=== PATIENT | female | born 1990 | race Caucasian/White ===

== ENCOUNTER 2021-07-30 21:23 | Inpatient (IN) | payer MEDICAID, SELFPAY ==
[2021-07-30 21:39] VITALS: BP 128/76; PULSE 90; RESP 18; TEMP 37.2; O2SAT 98
[2021-07-30 21:41] VITALS: BMI 19.2
[2021-07-30 22:00] VITALS: RESP 15
--- NOTE | 2021-07-30 22:38 | PC.NURSE ---
Marry is a 30 year old female who is a direct admit. Patient is an involuntary 96 hour hold. She arrived on 07/30/2021 at approximately 2140 via [address]. Her hair is curly and unkempt. She is a poor historian. Patient first stated someone took her to the hospital, then later she stated she was taken to the ER yesterday by her sister but she doesn't know or understand why her sister did that. Documents show that she's been in the hospital since the 27 of July. She doesn't understand why she was brought here. Patient stated I was plenty comfortable at my last place. Patient denies being SI/HI or doing any self harm. She denies any pain or sob at this time. Pupils are pinpoint size. Patient will avoid direct eye contact. Denies using any drugs or alcohol. Denies any family history of drug or alcohol issues. One tattoo on the right shoulder blade. No visible scars observed during skin check upon admission.
--- NOTE | 2021-07-30 23:21 | PC.NURSE ---
new admit 30/F SI/Psychosis +METH/+THC Direct Admit from [facility] formerly [facility], on 96hr hold up 96^08/04/21@0001 Pt has been homeless for the last couple weeks and is struggling with food/half-way needs. Pt?s appearance is disheveled, she avoids eye contact, and hair is matted. Pt endorses a history of anxiety, she denies drug use and denies past psych history. Pt?s sister states, ?She is struggling with a Meth addiction, her behavior is erratic, and she is not compliant with medications.? Pt?s thought process is disorganized, delusional, paranoid, and she is experiencing AH. Per medical records sent with pt, she has a history of Paranoid schizophrenia and med compliance issues.
[2021-07-31 06:00] VITALS: BP 110/70; PULSE 72; RESP 16; TEMP 35.9; O2SAT 98
--- NOTE | 2021-07-31 11:13 | NPU.GN ---
[facility] Topic:Luis Martin General Mood of Group: Marry did attend group therapy, she participated and talked with others. Marry seemed in good spirits. This designer writer will meet with Lupe to discuss ERE program, and how those services can assist her with her situation.
[2021-07-31 14:00] VITALS: BP 109/72; PULSE 92; RESP 20; TEMP 36.8; O2SAT 99
[2021-07-31] MEDS: nicotine 2 mg Gum BUCCAL (15:00)
--- NOTE | 2021-07-31 16:36 | P.HP_ITS ---
Providers/Chief Complaint Admitting Physician: Petros Puga MD Chief Complaint: Psychosis HPI NPU History of Present Illness Marry Arevalo is a 30 year old female who presented to an outside hospital endorsing that she was doing okay but appearing psychotic. Her sister was part of the process of getting her to the hospital, endorsing she has been homeless, using drugs including methamphetamine with a history of schizophrenia, off her medication for at least two weeks making very poor and dangerous choices with significant concern. She was placed on a 96-hour hold and transferred to [facility] and admitted to the neuropsychiatric unit for definitive treatment of those issues. She presents today as an unwilling and certainly unreliable historian, reporting that she has never been psychiatrically hospitalized, which is contradicted in the notes that we received from the outside hospital. She denies outpatient services and denies any medication. She reports she smokes a pack of cigarettes a day but otherwise denied alcohol, marijuana, or any illicit drugs, going as far as to say she has never used before. I attempted to assure her that I was not with the police, that I was a medical professional, trying to be helpful, and that the most help she would receive is from an honest assessment of what the difficulty is, but she continued and said that she has never used drugs before, never been to a rehab, never had a DUI. She denied ever having a suicide attempt and reports that she is absolutely unaware of why anybody would suggest that she needs to be in the hospital. We discussed the risks, benefits, and alternatives of considering some medication including the possibility of restarting some medications that she has had success with in the past, and she continued to deny medication history, and denied that there is anything that would be treated. PSYCHIATRIC HISTORY: As above. SUBSTANCE ABUSE HISTORY: As above. FAMILY HISTORY: She denied mental health or addiction issues on either side of the family, or suicide attempts or completions on either side of the family. DEVELOPMENTAL HISTORY: She denies issues with her mother?s or delivery of her. She met all developmental milestones on time. She denies any speech therapy, learning support, emotional support, or special education classes. PSYCHOSOCIAL HISTORY: She reports that her parents were together and remain together and that she is one of four children they had together. She has an older brother and older sister plus one younger sister. She denies any half-siblings through either of her parents. She reports her childhood was good and she denies any emotional, physical, or sexual abuse. She denies any other history of trauma or traumatic events. She reports she graduated from high school but denied any additional training. She reports that she does not have attraction to people but does endorse that she has had relationship with guys. She has never been , she has four children, a girl aged 11, a boy aged 9, girl aged 6, and a boy aged 3 that she reports are all with her mother, she has never been in the , and she denies any oriental orthodox belief system. 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 She denies the report in the outside hospital?s paperwork that she is homeless, saying she has been comfortable staying with a friend. LEGAL HISTORY: Denied. MEDICAL HISTORY: Denied. Meds NPU Home Medications Medication Instructions Recorded Confirmed Last Taken Type No Known Home Medications 07/30/21 07/30/21 Unknown History Allergies Allergy/AdvReac Type Severity Reaction Status Date / Time No Known Allergies Allergy Verified 07/30/21 22:03 PFSH NPU PFSH: Social History (Updated 07/30/21 @ 23:16 by Cassandra Bernardo RN) Smoking and tobacco status: current every day smoker cigarettes Quit status (tobacco): not considering quitting Second hand smoke exposure: Yes Smoking risk assessment/counseling performed?: Yes Desire information about substance/drug rehabilitation?: No Counseling given: Yes Housing: Homeless service: No Current occupational status: unemployed Current occupational exposures/hazards: No Pets and animals: No History of recent travel: No Sexually active: Yes Current gender identity: Female Additional social history: Homeless for several weeks, meth and THC abuse, erratic behavior, on 96 hr hold Mental Status Exam MSE Comments: This is a well-nourished, well-developed, white female, in hospital scrubs with poor grooming, and eye contact, significant pick pascual and acne in the center parts of both her cheeks. No abnormal movements except for psychomotor retardation. Semi-cooperative with exam in no acute distress. Speech was decreased rate and volume. Mood described as good; affect subdued Thought process, organized. Thought content: patient denied any suicidal or homicidal ideation, there were no delusions reported, but she clearly seemed guarded, she denied any auditory or visual hallucinations. Attention and concentration were mostly intact, and memory was unreliable, likely intentionally so, but none were formally tested. She is alert and oriented times person and place. Insight and judgment are impaired, impulse control is impaired. Vitals/I&O/Wt Last Vital Signs Temp 98.2 F 07/31/21 14:00 Pulse 92 07/31/21 14:00 Resp 20 H 07/31/21 14:00 BP 109/72 07/31/21 14:00 Pulse Ox 99 07/31/21 14:00 Weight last 48 hrs Weight 47.627 kg A&P Assessment and plan (1) Psychosis: Status: Acute (2) History of schizophrenia: Status: Acute (3) Methamphetamine dependence, continuous: Status: Acute Additional A&P Information This is a 30-year-old, white female, with a long history of mental health and addiction issues, who presents in full denial of any past history of mental health interventions or addiction, activities or treatment on a 96-hour hold, currently denying a need for any interventions. RECOMMENDATION AND PLAN: 1. Continue current medication. We will continue to try to offer her to restart previous medication or start a new antipsychotic. 2. Encourage individual, group, and milieu therapy. 3. Continue q-15 minute checks for safety. 4. Encourage sober living treatment after discharge, at the highest level of care, to which she is willing to commit. Involuntary Hold Information 96 Hour Hold: 96 Hour Involuntary Admission: Yes 96 Hour Hold Ending Date: 08/04/21 96 Hour Hold Ending Time: 00:01 Attestations NPU Medical Necessity Statement*: Inpatient hospitalization is medically necessary and the clinically appropriate intervention, at this time. We will monitor medications and make changes as indicated. Patient will be in the hospital for over two midnights. Likely length of stay is four to six days. Coding Level of Care Code Acute Adult Basic Studies Teacher for Caron Pickett Diagnoses Psychosis F29 History of schizophrenia Z86.59 Methamphetamine dependence, continuous F15.20
[2021-07-31 22:00] VITALS: BP 121/82; PULSE 68; RESP 17; TEMP 36.9; O2SAT 95
[2021-08-01 06:00] VITALS: BP 109/66; PULSE 58; RESP 15; TEMP 36.6; O2SAT 99
--- NOTE | 2021-08-01 11:57 | NPU.GN ---
[facility] Topic:Fransico General Mood of Group: Marry did not attend group today, she wanted to sleep.
[2021-08-01 14:00] VITALS: BP 106/75; PULSE 100; RESP 18; TEMP 36.1; O2SAT 96
[2021-08-01] MEDS: nicotine 2 mg Gum BUCCAL (15:11)
--- NOTE | 2021-08-01 18:09 | PM.NPN ---
Subjective NPU Subjective: Interval history: Patient presents today continuing to have denial of her current circumstances regardless of the evidence and information we have from outside hospital documentation. She continues to deny any issues with addiction may be reporting some distant past behavior. She does not want to talk about any of her documented psychiatric history and is not open to medications. She is eating and appears to be sleeping well. Mental Status Exam MSE Comments: This is a well-nourished, well-developed, white female, in hospital scrubs with poor grooming, and eye contact, significant pick pascual and acne in the center parts of both her cheeks. No abnormal movements except for psychomotor retardation. Semi-cooperative with exam in no acute distress. Speech was decreased rate and volume. Mood described as good; affect subdued. Thought process, organized. Thought content: patient denied any suicidal or homicidal ideation, there were no delusions reported, but she clearly seemed guarded, she denied any auditory or visual hallucinations. Attention and concentration were mostly intact, and memory was unreliable, likely intentionally so, but none were formally tested. She is alert and oriented times person and place. Insight and judgment are impaired, impulse control is impaired. Vitals/I&O/Wt Last Vital Signs Temp 97.3 F L 08/01/21 20:39 Pulse 74 08/01/21 20:39 Resp 16 08/01/21 20:39 BP 97/58 08/01/21 20:39 Pulse Ox 100 08/01/21 20:39 A&P Additional A&P Information (1) Psychosis: (2) History of schizophrenia: (3) Methamphetamine dependence, continuous: This is a 30-year-old, white female, with a long history of mental health and addiction issues, who presents in full denial of any past history of mental health interventions or addiction, activities or treatment on a 96-hour hold, currently denying a need for any interventions. RECOMMENDATION AND PLAN: 1. Continue current medication. We will continue to try to offer her to restart previous medication or start a new antipsychotic. 2. Encourage individual, group, and milieu therapy. 3. Continue q-15 minute checks for safety. 4. Encourage sober living treatment after discharge, at the highest level of care, to which she is willing to commit. Involuntary Hold Information 96 Hour Hold: 96 Hour Involuntary Admission: Yes 96 Hour Hold Ending Date: 08/04/21 96 Hour Hold Ending Time: 00:01 Attestations NPU Medical Necessity Statement*: Inpatient hospitalization is medically necessary and the clinically appropriate intervention, at this time. We will monitor medications and make changes as indicated. Likely length of stay is four to six days. Coding Level of Care Code Acute Cotton Weigher for Caron Pickett
[2021-08-01 20:39] VITALS: BP 97/58; PULSE 74; RESP 16; TEMP 36.3; O2SAT 100
[2021-08-02 06:00] VITALS: BP 103/60; PULSE 62; RESP 16; TEMP 36.5; O2SAT 97
--- NOTE | 2021-08-02 10:47 | P.PN_ITS ---
Subjective NPU Subjective: Interval history: Jocelyn presents today continuing to assert that she has no mental health or addiction issues. Really try to negotiate with her about restarting something on the past that was helpful without resolution. Discussed with her the 21-day hold was initiated but that tomorrow Dr. Layne will be available and they could explore with a possibility RN he will make an independent assessment of her safety for discharge and level of impairment. She was happy about the doctors change and was not interested in making any treatment changes. Mental Status Exam MSE Comments: This is a well-nourished, well-developed, white female, in hospital scrubs with poor grooming, and eye contact, significant pick pascual and acne in the center parts of both her cheeks. No abnormal movements except for psychomotor retardation. Semi-cooperative with exam in no acute distress. Speech was decreased rate and volume. Mood described as good; affect subdued and irritated with treatment team's position. Thought process, organized. Thought content: patient denied any suicidal or homicidal ideation, there were no delusions reported, but she clearly seemed guarded, she denied any auditory or visual hallucinations. Attention and concentration were mostly intact, and memory was unreliable, likely intentionally so, but none were formally tested. She is alert and oriented times person and place. Insight and judgment are impaired, impulse control is impaired. Vitals/I&O/Wt Last Vital Signs Temp 97.7 F 08/02/21 06:00 Pulse 62 08/02/21 06:00 Resp 16 08/02/21 06:00 BP 103/60 08/02/21 06:00 Pulse Ox 97 08/02/21 06:00 A&P Additional A&P Information (1) Psychosis: (2) History of schizophrenia: (3) Methamphetamine dependence, continuous: This is a 30-year-old, white female, with a long history of mental health and addiction issues, who presents in full denial of any past history of mental health interventions or addiction, activities or treatment on a 96-hour hold, currently denying a need for any interventions. RECOMMENDATION AND PLAN: 1. Continue current medication. We will continue to try to offer her to restart previous medication or start a new antipsychotic. 2. Encourage individual, group, and milieu therapy. 3. Continue q-15 minute checks for safety. 4. Encourage sober living treatment after discharge, at the highest level of care, to which she is willing to commit. 5. 21 day hold paperwork submitted. Involuntary Hold Information 96 Hour Hold: 96 Hour Involuntary Admission: Yes 96 Hour Hold Ending Date: 08/04/21 96 Hour Hold Ending Time: 00:01 Attestations NPU Medical Necessity Statement*: Inpatient hospitalization is medically necessary and the clinically appropriate intervention, at this time. We will monitor medications and make changes as indicated. Likely length of stay is 3-4 days. We will continue to encourage her to medication trial and await 21-day hold hearing date. Coding Level of Care Code Acute Biometric Fingerprinting Technician for Caron Pickett
--- NOTE | 2021-08-02 12:17 | NPU.GN ---
[facility] Topic:Coping Skills Bingo/ Cross word puzzle General Mood of Group: Marry did not attend and participate in group therapy this morning. Marry wanted to sleep.
[2021-08-02 14:00] VITALS: BP 106/61; PULSE 102; RESP 18; TEMP 36.8; O2SAT 96
[2021-08-02] MEDS: nicotine 2 mg Gum BUCCAL (15:11)
[2021-08-02 20:09] VITALS: BP 127/73; PULSE 92; RESP 18; TEMP 36.8; O2SAT 95
[2021-08-02] MEDS: trazodone 50 mg Tablet PO (21:25)
--- NOTE | 2021-08-03 04:27 | PC.NURSE ---
Patient up early in shift. Calm and cooperative with appropriate affect. Denied SI/HI, AVH, anxiety or depression. Reqested and received PRN Trazodone at 2124 to good effect. Patient has been resting with eyes closed in bed. No complaints voiced.
[2021-08-03 06:00] VITALS: BP 126/58; PULSE 61; RESP 15; TEMP 36.6; O2SAT 98
--- NOTE | 2021-08-03 13:04 | NPU.GN ---
[facility] Topic:Coping Kills Checklist General Mood of Group: Marry did attend group today and participated. Marry seems a bit guarded and shy she did not talk much or share her activity responses. Marry also seemed confused with the group activities.
[2021-08-03 14:00] VITALS: BP 108/76; PULSE 108; RESP 20; TEMP 36.6; O2SAT 93
--- NOTE | 2021-08-03 14:28 | PM.NPN ---
Subjective NPU Subjective: Interval history: The patient presents saying, I am perfectly stable. Medication makes me worse. She continues to deny information obtained from other medical facilities. Again, she does not want to talk about her psychiatric history. She reports that her mood is good without depression or worry. She says she slept well without nightmares. She denies auditory and visual hallucinations. She denies suicidal and homicidal ideation. I explained that we had taken out a 21-day hold petition. If/when the bay stocker accepts the petition, he will order her held until the time of the next hearing. While she understands the procedure, she disagrees with the need for continued hospitalization. Mental Status Exam MSE Comments: This is a well-nourished, well-developed, white female, in hospital scrubs with poor grooming, and eye contact, significant pock pascual and acne in the center parts of both her cheeks. No abnormal movements noted. No psychomotor agitation or retardation. Except for psychomotor retardation. She is cooperative with the exam, to the extent that she is able. Speech is at a regular rate and rhythm. Mood described as good; affect is on the verge of getting agitated. Thought process, organized. Thought content: patient denied any suicidal or homicidal ideation, there were no delusions reported, but she clearly seemed guarded, she denied any auditory or visual hallucinations. Attention and concentration were mostly intact, and memory was unreliable, likely intentionally so, but none were formally tested. She is alert and oriented times person and place. Insight and judgment are impaired, impulse control is impaired. Vitals/I&O/Wt Last Vital Signs Temp 97.9 F 08/03/21 06:00 Pulse 61 08/03/21 06:00 Resp 15 08/03/21 06:00 BP 126/58 08/03/21 06:00 Pulse Ox 98 08/03/21 06:00 A&P Assessment and plan (1) Methamphetamine dependence, continuous: Status: Acute (2) History of schizophrenia: Status: Acute (3) Psychosis: Status: Acute Additional A&P Information This is a 30-year-old, white female, with a long history of mental health and addiction issues, who presents in full denial of any past history of mental health interventions or addiction, activities or treatment on a 96-hour hold, currently denying a need for any interventions. RECOMMENDATION AND PLAN: 1. Continue current medication. We will continue to try to offer her to restart previous medication or start a new antipsychotic. 2. Encourage individual, group, and milieu therapy. 3. Continue q-15 minute checks for safety. 4. Encourage sober living treatment after discharge, at the highest level of care, to which she is willing to commit. Involuntary Hold Information 96 Hour Hold: 96 Hour Involuntary Admission: Yes 96 Hour Hold Ending Date: 08/04/21 96 Hour Hold Ending Time: 00:01 Attestations NPU Medical Necessity Statement*: Inpatient hospitalization is medically necessary and the clinically appropriate intervention, at this time. We will monitor medications and make changes as indicated. Likely length of stay is 3-4 days. Coding Level of Care Code Acute Customer Acquisition Manager for Caron Pickett Diagnoses Methamphetamine dependence, continuous F15.20 History of schizophrenia Z86.59 Psychosis F29
--- NOTE | 2021-08-03 15:36 | PC.NURSE ---
verbal consent from patient that we can speak to her sister
[2021-08-03] MEDS: hyDROXYzine 25 mg Capsule 50 MG PO ×2 (16:05→21:04)
--- NOTE | 2021-08-03 16:05 | PC.NURSE ---
prn VISTARIL 50 MG GIVEN PO PER PT C/O STATED ANXIETY
[2021-08-03] MEDS: nicotine 2 mg Gum BUCCAL (17:46)
[2021-08-03 19:55] VITALS: BP 111/77; PULSE 94; RESP 17; TEMP 37.1; O2SAT 95
--- NOTE | 2021-08-03 20:00 | PC.NURSE ---
Upon assessment patient was talking on the phone with a friend. Patient smiling and laughing. She denied any complaints and stated she was feeling good. Patient has been compliant with all care this shift. Will continue to monitor.
[2021-08-04 06:00] VITALS: BP 128/90; PULSE 68; RESP 16; TEMP 36.6; O2SAT 95
[2021-08-04 14:00] VITALS: BP 97/56; PULSE 86; RESP 17; TEMP 37.1; O2SAT 97
[2021-08-04] MEDS: blistex lip oint 7 gm Tube 1 APPLIC TOPICAL (16:17)
--- NOTE | 2021-08-04 16:54 | P.PN_ITS ---
Subjective NPU Subjective: Interval history: I met with the treatment team to discuss the patient's progress. They say she has been approved for the ER a program. The patient says she is now willing to take Risperdal, and believes she takes 1 mg twice daily at home. She says it helps for her psychosis. She denies hearing or seeing things now. No suicidal or homicidal ideation. Mental Status Exam MSE Comments: This is a well-nourished, well-developed, white female, in hospital scrubs with poor grooming, and eye contact, significant pick pascual and acne in the center parts of both her cheeks. No abnormal movements except for psychomotor retardation. Semi-cooperative with exam in no acute distress. Speech was decreased rate and volume. Mood described as good; affect improved. Thought process, organized. Thought content: patient denied any suicidal or homicidal ideation, there were no delusions reported, and seems less guarded, she denied any auditory or visual hallucinations. Attention and concentration were mostly intact, and memory is improving, but none were formally tested. She is alert and oriented times person and place. Insight and judgment are impaired, impulse control is impaired. Vitals/I&O/Wt Last Vital Signs Temp 98.7 F 08/04/21 14:00 Pulse 86 08/04/21 14:00 Resp 17 08/04/21 14:00 BP 97/56 08/04/21 14:00 Pulse Ox 97 08/04/21 14:00 A&P Assessment and plan (1) Methamphetamine dependence, continuous: Status: Acute (2) History of schizophrenia: Status: Acute (3) Psychosis: Status: Acute Additional A&P Information This is a 30-year-old, white female, with a long history of mental health and addiction issues, who presents in full denial of any past history of mental health interventions or addiction, activities or treatment on a 96-hour hold, currently denying a need for any interventions. RECOMMENDATION AND PLAN: 1. Continue current medication. She says she has taken Risperdal 1 mg twice daily in the past for her schizophrenia, and is willing to restart that medication today. 2. Encourage individual, group, and milieu therapy. 3. Continue q-15 minute checks for safety. 4. Encourage sober living treatment after discharge, at the highest level of care, to which she is willing to commit. 5. 21 day hold paperwork submitted. Hearing is scheduled for 08/07/2021 at 3 PM. Involuntary Hold Information 96 Hour Hold: 96 Hour Involuntary Admission: Yes 96 Hour Hold Ending Date: 08/04/21 96 Hour Hold Ending Time: 00:01 Attestations NPU Medical Necessity Statement*: Inpatient hospitalization is medically necessary and the clinically appropriate intervention, at this time. We will monitor medications and make changes as indicated. Likely length of stay is 3-4 days. We will continue to encourage her to medication trial and await 21-day hold hearing on 08/07/2021. Coding Level of Care Code Acute Internet And E Business Project Manager for [employer] Diagnoses Methamphetamine dependence, continuous F15.20 History of schizophrenia Z86.59 Psychosis F29
[2021-08-04] MEDS: hyDROXYzine 25 mg Capsule 50 MG PO (17:16)
[2021-08-04] MEDS: risperiDONE 1 mg Tablet PO (17:16)
[2021-08-04 21:03] VITALS: BP 104/62; PULSE 72; RESP 18; TEMP 36.9; O2SAT 95
[2021-08-04] MEDS: trazodone 50 mg Tablet PO (21:13)
[2021-08-05 06:00] VITALS: BP 109/70; PULSE 81; RESP 14; TEMP 36.6; O2SAT 99
[2021-08-05] MEDS: risperiDONE 1 mg Tablet PO ×2 (10:36→17:19)
[2021-08-05] MEDS: hyDROXYzine 25 mg Capsule 50 MG PO ×2 (12:25→21:49)
--- NOTE | 2021-08-05 12:25 | PC.NURSE ---
Vistaril PRN Patient requesting a PRN medication for anxiety. Vistaril given. Will continue to monitor.
[2021-08-05 14:00] VITALS: BP 117/82; PULSE 97; RESP 18; TEMP 36.6; O2SAT 98
[2021-08-05] MEDS: nicotine 2 mg Gum BUCCAL ×2 (15:12→17:20)
[2021-08-05] MEDS: OLANZapine 5 mg ODT PO (15:27)
--- NOTE | 2021-08-05 15:32 | P.PN_ITS ---
Subjective NPU Subjective: Interval history: The patient says her mood is okay and she is not depressed at all. We talked some more about the Risperdal, and she openly tells me she takes it at home for her schizophrenia. She denies auditory and visual hallucinations. No suicidal or homicidal ideation. She denies any medication side effects since starting the Risperdal. Mental Status Exam MSE Comments: This is a well-nourished, well-developed, white female, in hospital scrubs with poor grooming, and eye contact, significant pick pascual and acne in the center parts of both her cheeks. No abnormal movements. No psychomotor agitation or retardation. She is much more cooperative now. No acute distress. Speech was at a regular rate and rhythm but somewhat quiet. Mood described as good; affect improved. Thought process, organized. Thought content: patient denied any suicidal or homicidal ideation, there were no delusions reported, and seems less guarded, she denied any auditory or visual hallucinations. Attention and concentration were mostly intact, and memory is improving, but none were formally tested. She is alert and oriented times person and place. Insight and judgment are improving, impulse control is improving. Vitals/I&O/Wt Last Vital Signs Temp 98.7 F 08/06/21 14:00 Pulse 88 08/06/21 14:00 Resp 18 08/06/21 14:00 BP 106/58 08/06/21 14:00 Pulse Ox 96 08/06/21 14:00 Weight last 48 hrs Weight 47.627 kg A&P Additional A&P Information This is a 30-year-old, white female, with a long history of mental health and addiction issues, who presents in full denial of any past history of mental health interventions or addiction, activities or treatment on a 96-hour hold, currently denying a need for any interventions. RECOMMENDATION AND PLAN: 1. Continue current medication. She is now taking her home medication, Risper patricia 1 mg twice daily. No side effects 2. Encourage individual, group, and milieu therapy. 3. Continue q-15 minute checks for safety. 4. Encourage sober living treatment after discharge, at the highest level of care, to which she is willing to commit. 5. 21 day hold paperwork submitted. Hearing is scheduled for 08/07/2021 at 3 PM. Involuntary Hold Information 96 Hour Hold: 96 Hour Involuntary Admission: Yes 96 Hour Hold Ending Date: 08/04/21 96 Hour Hold Ending Time: 00:01 Attestations NPU Medical Necessity Statement*: Inpatient hospitalization is medically necessary and the clinically appropriate intervention, at this time. We will monitor medications and make changes as indicated. Likely length of stay is 2-3 days. We will continue to encourage her to medication trial and await 21-day hold hearing on 08/07/2021. Coding Level of Care Code Acute [employer] Operations Manager for Caron Pickett
[2021-08-05 22:00] VITALS: BP 97/61; PULSE 95; RESP 16; TEMP 36.7; O2SAT 100
--- NOTE | 2021-08-06 01:28 | PC.NURSE ---
Patient requested and received PRN medications- Vistaril- 2149 for anxiety to good effect. No further complaints at this time.
[2021-08-06 06:00] VITALS: BP 94/61; PULSE 62; RESP 16; TEMP 36.8; O2SAT 99
[2021-08-06] MEDS: risperiDONE 1 mg Tablet PO ×2 (07:58→20:33)
[2021-08-06 14:00] VITALS: BP 106/58; PULSE 88; RESP 18; TEMP 37.1; O2SAT 96
--- NOTE | 2021-08-06 17:46 | P.PN_ITS ---
Subjective NPU Subjective: Interval history: The patient says she is continuing to do better. Her mood is improved. She slept well last night. She has no side effects on Risperdal. No auditory or visual hallucinations. No suicidal ideation. We talked about the circumstances of her admission. She said she had been sitting alone in her apartment which put her at risk for drug relapse. She says she will now stay off of drugs and on her medication. She says her sister lives next door and is supportive of her. She is hoping to leave tomorrow. We will discuss this with the team. Mental Status Exam MSE Comments: This is a well-nourished, well-developed, white female, in hospital scrubs with poor grooming, and eye contact, significant pick pascual and acne in the center parts of both her cheeks. No abnormal movements. No psychomotor agitation or retardation. She is much more cooperative now. No acute distress. Speech was at a regular rate and rhythm but somewhat quiet. Mood described as good; affect improved. Thought process, organized. Thought content: patient denied any suicidal or homicidal ideation, there were no delusions reported, and seems less guarded, she denied any auditory or visual hallucinations. Attention and concentration were mostly intact, and memory is improving, but none were formally tested. She is alert and oriented times person and place. Insight and judgment are improving, impulse control is improving. Vitals/I&O/Wt Last Vital Signs Temp 98.7 F 08/06/21 14:00 Pulse 88 08/06/21 14:00 Resp 18 08/06/21 14:00 BP 106/58 08/06/21 14:00 Pulse Ox 96 08/06/21 14:00 Weight last 48 hrs Weight 47.627 kg A&P Assessment and plan (1) Methamphetamine dependence, continuous: Status: Acute (2) History of schizophrenia: Status: Acute (3) Psychosis: Status: Acute Additional A&P Information This is a 30-year-old, white female, with a long history of mental health and addiction issues, who presents in full denial of any past history of mental health interventions or addiction, activities or treatment on a 96-hour hold, currently denying a need for any interventions. RECOMMENDATION AND PLAN: 1. Continue current medication. She is now taking her home medication, Risperdal 1 mg twice daily. No side effects 2. Encourage individual, group, and milieu therapy. 3. Continue q-15 minute checks for safety. 4. Encourage sober living treatment after discharge, at the highest level of care, to which she is willing to commit. 5. 21 day hold paperwork submitted. Hearing is scheduled for 08/07/2021 at 3 PM. If the patient continues to improve and has good discharge plans, we will release her before the hearing. Involuntary Hold Information 96 Hour Hold: 96 Hour Involuntary Admission: Yes 96 Hour Hold Ending Date: 08/04/21 96 Hour Hold Ending Time: 00:01 Attestations NPU Medical Necessity Statement*: Inpatient hospitalization is medically necessary and the clinically appropriate intervention, at this time. We will monitor medications and make changes as indicated. Likely length of stay is 1-2 days. We will continue to encourage her to medication trial and await 21-day hold hearing on 08/07/2021. Coding Level of Care Code Acute Manager Transfer for Caron Pickett Diagnoses Methamphetamine dependence, continuous F15.20 History of schizophrenia Z86.59 Psychosis F29
[2021-08-06] MEDS: nicotine 2 mg Gum BUCCAL (18:12)
[2021-08-06 20:00] VITALS: BP 98/60; PULSE 62; RESP 16; TEMP 36.3; O2SAT 96
[2021-08-06] MEDS: hyDROXYzine 25 mg Capsule 50 MG PO (20:33)
[2021-08-06] MEDS: trazodone 50 mg Tablet PO (21:34)
[2021-08-06] MEDS: OLANZapine 5 mg ODT PO (22:35)
--- NOTE | 2021-08-06 23:21 | PC.NURSE ---
Upon assessment patient in her room. Patient is alert/oriented x4. Patient has good eye contact and is smiling. She has been cooperative with staff and minimally social with peers this shift. Patient does talk on the phone quite often. She continues to appear disheveled. She denied any depression, anxiety, SI/HI, hallucinations. Will continue to monitor and follow plan of care. q 15 min safety checks per protocol.
[2021-08-07 06:00] VITALS: BP 111/71; PULSE 72; RESP 15; TEMP 37.1; O2SAT 98
[2021-08-07] MEDS: risperiDONE 1 mg Tablet PO (08:37)
[2021-08-07 11:06] VITALS: BP 111/71; PULSE 72; RESP 15; TEMP 37.1; O2SAT 98
--- NOTE | 2021-08-07 11:35 | PM.NDC ---
Diagnoses at Discharge Discharge Diagnosis (1) Methamphetamine dependence, continuous: Status: Chronic (2) History of schizophrenia: Status: Chronic (3) Psychosis: Status: Resolved Reason for Visit Reason for Visit: Psychosis Brief History: Marry Arevalo is a 30 year old female who presented to an outside hospital endorsing that she was doing okay but appearing psychotic. Her sister was part of the process of getting her to the hospital, endorsing she has been homeless, using drugs including methamphetamine with a history of schizophrenia, off her medication for at least two weeks making very poor and dangerous choices with significant concern. She was placed on a 96-hour hold and transferred to [facility] and admitted to the neuropsychiatric unit for definitive treatment of those issues. She presents today as an unwilling and certainly unreliable historian, reporting that she has never been psychiatrically hospitalized, which is contradicted in the notes that we received from the outside hospital. She denies outpatient services and denies any medication. She reports she smokes a pack of cigarettes a day but otherwise denied alcohol, marijuana, or any illicit drugs, going as far as to say she has never used before. I attempted to assure her that I was not with the police, that I was a medical professional, trying to be helpful, and that the most help she would receive is from an honest assessment of what the difficulty is, but she continued and said that she has never used drugs before, never been to a rehab, never had a DUI. She denied ever having a suicide attempt and reports that she is absolutely unaware of why anybody would suggest that she needs to be in the hospital. We discussed the risks, benefits, and alternatives of considering some medication including the possibility of restarting some medications that she has had success with in the past, and she continued to deny medication history, and denied that there is anything that would be treated. PSYCHIATRIC HISTORY: As above. SUBSTANCE ABUSE HISTORY: As above. FAMILY HISTORY: She denied mental health or addiction issues on either side of the family, or suicide attempts or completions on either side of the family. DEVELOPMENTAL HISTORY: She denies issues with her mother?s or delivery of her. She met all developmental milestones on time. She denies any speech therapy, learning support, emotional support, or special education classes. PSYCHOSOCIAL HISTORY: She reports that her parents were together and remain together and that she is one of four children they had together. She has an older brother and older sister plus one younger sister. She denies any half-siblings through either of her parents. She reports her childhood was good and she denies any emotional, physical, or sexual abuse. She denies any other history of trauma or traumatic events. She reports she graduated from high school but denied any additional training. She reports that she does not have attraction to people but does endorse that she has had relationship with guys. She has never been , she has four children, a girl aged 11, a boy aged 9, girl aged 6, and a boy aged 3 that she reports are all with her mother, she has never been in the , and she denies any oriental orthodox belief system. 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 She denies the report in the outside hospital?s paperwork that she is homeless, saying she has been comfortable staying with a friend. LEGAL HISTORY: Denied. MEDICAL HISTORY: Denied. Hospital Course Hospital Course The patient was admitted to the neuropsychiatric unit for definitive treatment of these issues. On the unit she slowly acclimated to the individual, group and milieu therapies. There were psychotic symptoms present initially which resolved when Risperdal 1 mg daily was restarted. She also became more open about her past history of schizophrenia. She was receptive to treatment team recommendations and showed modest improvement and was able to contract for safety prior to discharge. During the hospitalization, patient had routine laboratory studies which were within normal limits except for few outliers. Additionally there was a general medical evaluation which was also within normal limits and revealed no new acute processes. Discharge Summary: At the time of discharge, psychosis and lethality were denied. Mood and anxiety were well managed. Patient endorsed a plan to avoid all drugs of abuse and follow-up with the aftercare recommendations of the treatment team. Patient was evaluated and deemed to be absent credible lethality, and had achieved the maximum benefit from an inpatient hospitalization, so was discharged. Involuntary Hold Information 96 Hour Hold: 96 Hour Involuntary Admission: Yes 96 Hour Hold Ending Date: 08/04/21 96 Hour Hold Ending Time: 00:01 Mental Status Exam MSE Comments: The patient made good eye contact and was cooperative and open to the exam. No psychomotor agitation or retardation. Speech was had a regular rate and rhythm without pressure. Alert and oriented to person, place, time, and situation. Attention and concentration were intact to exam Memory was fairly good to exam. Mood is improved without depression and anxiety. Affect is brighter. Thought process: Logical and goal directed. No racing thoughts or flight of ideas. Thought content: Denies auditory and visual hallucinations. There are no delusions noted. No suicidal or homicidal ideation. Has future-oriented goals. Insight and judgment are improved and adequate. Discharge Data Vitals: Last Vital Signs Temp 98.8 F 08/07/21 11:06 Pulse 72 08/07/21 11:06 Resp 15 08/07/21 11:06 BP 111/71 08/07/21 11:06 Pulse Ox 98 08/07/21 11:06 Discharge Plan Discharge Patient Disposition: Home Condition: Stable Prescriptions: New risperidone 1 mg Tablet 1 mg PO 0900,2100 30 Days Qty: 60 RF: 0 hydroxyzine pamoate 25 mg Capsule 50 mg PO Q6H PRN (Reason: anxiety or sleep) 30 Days Qty: 60 RF: 0 Discharge Orders: Discharge Order (Routine); Ordered 08/07/21 Ordered By: Hernan Layne Discharge Diet: Usual diet Discharge Activity: Resume usual activity Patient Instructions: Hydroxyzine (By mouth) (Vistaril), Risperidone (By mouth), Methamphetamine Abuse, Schizophrenia (GEN), Opioid Safety Discharge Attestations NPU Time Spent in Discharge Care*: less than 30 min Specific Discharge Activities: Specific discharge activities: educating patient, discussing with case resolution specialist/social workers/dc planners, documenting/other paperwork and evaluating patient/reviewing data Status at Discharge: Cognitive status at discharge: cognitively intact, Behavioral status at discharge: cooperative, Functional status at discharge: independent ambulation Overall status at discharge: patient is back to baseline Coding Level of Care Code Acute Chg FW DC note Diagnoses Methamphetamine dependence, continuous F15.20 History of schizophrenia Z86.59 Psychosis F29
[2021-08-07] MEDS: nicotine 2 mg Gum BUCCAL (12:39)
== END 2021-08-07 12:51 | disposition home or self-care (01) | DRG 885 ==
PROVIDERS: Admitting Provider Psychiatry & Neurology Psychiatry; Visit Provider Psychiatry & Neurology Child & Adolescent Psychiatry
DX: F20.9 Schizophrenia, unspecified (principal); F15.20 Other stimulant dependence, uncomplicated; Z59.01 Sheltered homelessness; Z91.14 Patient's other noncompliance with medication regimen; F17.210 Nicotine dependence, cigarettes, uncomplicated; F12.10 Cannabis abuse, uncomplicated
CPT/HCPCS: 97150; 97165